=== PATIENT | male | born 1965 | race African-American/Black ===

== ENCOUNTER 2024-01-27 13:16 | Inpatient (IN) | payer OTHER ==
[2024-01-27 15:44] VITALS: BMI 21.9
[2024-01-27] MEDS ORDERED: guaiFENesin 600 MG TABLET.ER (FP) PO PRN (16:15)
[2024-01-27] MEDS ORDERED: hydrOXYzine PAMOATE 25 MG CAPSULE (FP) PO PRN (16:15)
[2024-01-27] MEDS ORDERED: BENZONATATE 200 MG CAPSULE PO PRN (16:15)
[2024-01-27] MEDS ORDERED: IBUPROFEN 600 MG TABLET (FP) PO PRN (16:15)
[2024-01-27] MEDS ORDERED: ACETAMINOPHEN 325 MG TABLET (FP) PO PRN (16:15)
[2024-01-27] MEDS ORDERED: POLYETHYLENE GLYCOL (HEALTHYLAX) 3350 17 GM PACKET PO PRN (16:15)
[2024-01-27] MEDS ORDERED: DOCUSATE SODIUM 100 MG CAPSULE (FP) PO PRN (16:15)
[2024-01-27] MEDS ORDERED: LOPERAMIDE HCL 2 MG CAPSULE PO PRN (16:15)
[2024-01-27] MEDS ORDERED: MAG HYDROX/AL HYDROX/SIMETH 30 ML UNIT-DOSE CUP PO PRN (16:15)
[2024-01-27] MEDS ORDERED: BENZOCAINE/MENTHOL (CHLORASEPTIC ) LOZENGE MM PRN (16:15)
[2024-01-27] MEDS ORDERED: MAGNESIUM HYDROX 2400MG/30ML ORAL SUSPENSION 30 ML CUP PO PRN (16:15)
[2024-01-27] MEDS ORDERED: IBUPROFEN 400 MG TABLET (FP) PO PRN (16:15)
[2024-01-27] MEDS ORDERED: P-EPHED 60MG/TRIPROLIDI 2.5MG TABLET PO PRN (16:15)
[2024-01-27] MEDS: MELATONIN 5 MG TABLETS PO SCH (22:02)
[2024-01-27] MEDS: THIAMINE 100 MG TABLET PO SCH (22:02)
[2024-01-28] MEDS: PRENATAL VITAMINS W/ FOLIC ACID TABLET (FP) PO SCH (10:08)
[2024-01-28 11:41] LABS: HEMATOCRIT 35.3 % (35.4-49); HEMOGLOBIN 12.1 GM/dL (11.7-16.9); MCH 30.5 pg (25.7-33.7); MCHC 34.4 g/dl (32.0-35.9); MEAN CELL VOLUME 88.6 fl (80-96); MEAN PLT VOLUME 10.8 fl (7.5-11.1); PLATELET COUNT 214 10^3/uL (134-434); RBC 3.98 M/mm3 (4.00-5.60); RDW 14.9 % (11.9-15.9)
[2024-01-28 11:59] LABS: POTASSIUM 3.8 mmol/L (3.5-5.1)
[2024-01-28 12:05] LABS: CALCIUM 8.3 mg/dL (8.5-10.1)
[2024-01-28 12:06] LABS: ALBUMIN 2.7 g/dl (3.4-5.0); BLOOD UREA NITROGEN 12.2 mg/dL (7-18)
[2024-01-28 12:09] LABS: CREATININE 0.7 mg/dL (0.55-1.3)
[2024-01-28 12:10] LABS: TOT PROT 7.1 g/dl (6.4-8.2)
[2024-01-28 12:17] LABS: BILIRUBIN,TOTAL 0.7 mg/dL (0.2-1)
[2024-01-28 12:18] LABS: SYPHILIS W/ RPR CONF NON-REACTIVE (NONREACTIVE)
[2024-01-28 17:26] LABS: PH,URINE 7.5 (5.0-8.0); URINE APPEARANCE CLEAR; URINE BILIRUBIN NEGATIVE (NEGATIVE); URINE COLOR YELLOW; URINE GLUCOSE (UA) NEGATIVE (NEGATIVE); URINE KETONE NEGATIVE (NEGATIVE); URINE LEUK ESTERASE NEGATIVE (NEGATIVE); URINE NITRITE NEGATIVE (NEGATIVE); URINE PROTEIN NEGATIVE (NEGATIVE); URINE UROBILINOGEN 0.2 mg/dL (0.2-1.0)
[2024-02-04] MEDS ORDERED: BENZOCAINE/MENTH/CETYLPYRD CL 1 EACH LOZENGE MM PRN (09:53)
[2024-02-08 07:04] VITALS: RESP 18
[2024-02-11] MEDS: DOXYCYCLINE HYCLATE 100 MG TABLET PO SCH (18:38)
[2024-02-13 06:51] VITALS: BP 124/84; PULSE 78; TEMP 97.5
== END 2024-02-13 09:35 | disposition home or self-care (01) | DRG 772 ==
LOC: YASAS 13:16 → Y5N 18:10
PROVIDERS: ADMIT Allergy & Immunology; ATTEND Psychiatry & Neurology Pain Medicine
PROC: HZ42ZZZ Group Counseling for Substance Abuse Treatment, Cognitive-Behavioral (ICD-10-PCS; principal; 2024-01-27)
DX: F14.20 Cocaine dependence, uncomplicated (principal); F10.20 Alcohol dependence, uncomplicated; F17.210 Nicotine dependence, cigarettes, uncomplicated; J06.9 Acute upper respiratory infection, unspecified
CPT/HCPCS: 0241U-QW; 36415; 80053; 80305; 81003; 85027; 86780; 86803; 87811; 93005; 93010

== ENCOUNTER 2024-03-17 20:18 | Inpatient (IN) | payer OTHER ==
[2024-03-17 21:04] VITALS: BMI 26.6
[2024-03-17] MEDS ORDERED: LOPERAMIDE HCL 2 MG CAPSULE PO PRN (21:48)
[2024-03-17] MEDS ORDERED: NALOXONE (NARCAN) HCL 4 MG/0.1 ML SPRAY NS PRN (21:48)
[2024-03-17] MEDS ORDERED: IBUPROFEN 400 MG TABLET (FP) PO PRN (21:48)
[2024-03-17] MEDS ORDERED: BENZONATATE 200 MG CAPSULE PO PRN (21:48)
[2024-03-17] MEDS ORDERED: hydrOXYzine PAMOATE 25 MG CAPSULE (FP) PO PRN (21:48)
[2024-03-17] MEDS ORDERED: guaiFENesin 600 MG TABLET.ER (FP) PO PRN (21:48)
[2024-03-17] MEDS ORDERED: POLYETHYLENE GLYCOL (HEALTHYLAX) 3350 17 GM PACKET PO PRN (21:48)
[2024-03-17] MEDS ORDERED: BENZOCAINE/MENTHOL (CHLORASEPTIC ) LOZENGE MM PRN (21:48)
[2024-03-17] MEDS ORDERED: NALOXONE HCL 0.4 MG/ML VIAL IM PRN (21:48)
[2024-03-17] MEDS ORDERED: IBUPROFEN 600 MG TABLET (FP) PO PRN (21:48)
[2024-03-17] MEDS ORDERED: MAG HYDROX/AL HYDROX/SIMETH 30 ML UNIT-DOSE CUP PO PRN (21:48)
[2024-03-17] MEDS ORDERED: MAGNESIUM HYDROX 2400MG/30ML ORAL SUSPENSION 30 ML CUP PO PRN (21:48)
[2024-03-17] MEDS ORDERED: ACETAMINOPHEN 325 MG TABLET (FP) PO PRN (21:48)
[2024-03-17] MEDS: THIAMINE 100 MG TABLET PO SCH (23:16)
[2024-03-17] MEDS: MELATONIN 5 MG TABLETS PO SCH (23:16)
[2024-03-18] MEDS: PRENATAL VITAMINS W/ FOLIC ACID TABLET (FP) PO SCH (10:12)
[2024-03-18 11:31] LABS: HEMATOCRIT 34.7 % (35.4-49); HEMOGLOBIN 11.7 GM/dL (11.7-16.9); MCH 30.1 pg (25.7-33.7); MCHC 33.7 g/dl (32.0-35.9); MEAN CELL VOLUME 89.3 fl (80-96); MEAN PLT VOLUME 11.9 fl (7.5-11.1); PLATELET COUNT 133 10^3/uL (134-434); RBC 3.89 M/mm3 (4.00-5.60); WHITE BLOOD COUNT 4.6 K/mm3 (4.0-10.0)
[2024-03-18 11:35] LABS: URINE APPEARANCE CLEAR; URINE BILIRUBIN NEGATIVE (NEGATIVE); URINE COLOR YELLOW; URINE GLUCOSE (UA) NEGATIVE (NEGATIVE); URINE KETONE NEGATIVE (NEGATIVE); URINE LEUK ESTERASE NEGATIVE (NEGATIVE); URINE NITRITE NEGATIVE (NEGATIVE); URINE PROTEIN NEGATIVE (NEGATIVE)
[2024-03-18 11:43] LABS: CHLORIDE 106 mmol/L (98-107); POTASSIUM 3.5 mmol/L (3.5-5.1); SODIUM 141 mmol/L (136-145)
[2024-03-18 11:53] LABS: CALCIUM 7.9 mg/dL (8.5-10.1)
[2024-03-18 11:54] LABS: ANION GAP 5 mmol/L (4-13); BLOOD UREA NITROGEN 15.6 mg/dL (7-18); CO2 29 mmol/L (21-32); GLUCOSE,RANDOM 132 mg/dL (74-106)
[2024-03-18 11:57] LABS: CREATININE 0.7 mg/dL (0.55-1.3); SGOT/AST 21 U/L (15-37); SGPT/ALT 23 U/L (13-61)
[2024-03-18 11:58] LABS: BILIRUBIN,TOTAL 0.7 mg/dL (0.2-1); TOT PROT 7.4 g/dl (6.4-8.2)
[2024-03-18 12:00] LABS: ALK PHOS 70 U/L (45-117)
[2024-03-20 11:13] LABS: POTASSIUM 3.4 mmol/L (3.5-5.1)
[2024-03-20 11:16] LABS: BASO % 0.8 % (0-2.0); BLOOD UREA NITROGEN 10.5 mg/dL (7-18); CALCIUM 8.6 mg/dL (8.5-10.1); EOS % 2.7 % (0-4.5); HEMATOCRIT 36.7 % (35.4-49); HEMOGLOBIN 12.4 GM/dL (11.7-16.9); MCH 29.7 pg (25.7-33.7); MCHC 33.7 g/dl (32.0-35.9); MONO % 10.9 % (3.8-10.2); NEUT % 45.6 % (42.8-82.8); PLATELET COUNT 130 10^3/uL (134-434); RBC 4.17 M/mm3 (4.00-5.60); WHITE BLOOD COUNT 4.3 K/mm3 (4.0-10.0)
[2024-03-20 11:17] LABS: ALBUMIN 3.1 g/dl (3.4-5.0); INR 1.1 (0.83-1.09); PROTHROMBIN TIME (PATIENT) 12.4 SEC (9.7-13.0)
[2024-03-20 11:20] LABS: CREATININE 0.7 mg/dL (0.55-1.3)
[2024-03-20 11:22] LABS: BILIRUBIN,TOTAL 0.3 mg/dL (0.2-1); TOT PROT 7.3 g/dl (6.4-8.2)
[2024-03-21] MEDS: LACTULOSE 20 GM/30 ML UDC (FOR ORAL USE ONLY) PO SCH (13:40)
[2024-03-22] MEDS: POTASSIUM CHLORIDE ORAL LIQUID 20 MEQ/15 ML PO SCH (13:22)
[2024-03-26 06:11] VITALS: BP 108/73; PULSE 70; RESP 18; TEMP 96.8
== END 2024-03-26 10:41 | disposition home or self-care (01) | DRG 772 ==
LOC: YASAS 20:18 → Y3W 21:52
PROVIDERS: ADMIT Allergy & Immunology; ATTEND Psychiatry & Neurology Pain Medicine
PROC: HZ42ZZZ Group Counseling for Substance Abuse Treatment, Cognitive-Behavioral (ICD-10-PCS; principal; 2024-03-17)
DX: F10.20 Alcohol dependence, uncomplicated (principal); F14.20 Cocaine dependence, uncomplicated; E72.20 Disorder of urea cycle metabolism, unspecified; E87.6 Hypokalemia; D68.8 Other specified coagulation defects; R94.31 Abnormal electrocardiogram [ECG] [EKG]; R26.89 Other abnormalities of gait and mobility; Z99.89 Dependence on other enabling machines and devices; Z87.891 Personal history of nicotine dependence
CPT/HCPCS: 36415; 80053; 80305; 80307; 81003; 82140; 85025; 85027; 85610; 86780; 87811; 93005; 93010

== ENCOUNTER 2024-03-18 00:01 | Emergency (ER) | payer OTHER ==
[2024-03-18 00:22] VITALS: BP 116/61; PULSE 72; RESP 17; TEMP 97.8; BMI 25.0
== END 2024-03-18 02:47 | disposition home or self-care (01) ==
LOC: JER 00:01
DX: R94.31 Abnormal electrocardiogram [ECG] [EKG] (principal)
CPT/HCPCS: 93005; 93010; 99283-25

== ENCOUNTER 2024-05-07 11:24 | Inpatient (IN) | payer OTHER ==
[2024-05-07 12:50] VITALS: BMI 24.3
[2024-05-07] MEDS ORDERED: POLYETHYLENE GLYCOL (HEALTHYLAX) 3350 17 GM PACKET PO PRN (13:13)
[2024-05-07] MEDS ORDERED: LOPERAMIDE HCL 2 MG CAPSULE PO PRN (13:13)
[2024-05-07] MEDS ORDERED: IBUPROFEN 400 MG TABLET (FP) PO PRN (13:13)
[2024-05-07] MEDS ORDERED: BENZONATATE 200 MG CAPSULE PO PRN (13:13)
[2024-05-07] MEDS ORDERED: BENZOCAINE/MENTHOL (CHLORASEPTIC ) LOZENGE MM PRN (13:13)
[2024-05-07] MEDS ORDERED: MAGNESIUM HYDROX 2400MG/30ML ORAL SUSPENSION 30 ML CUP PO PRN (13:13)
[2024-05-07] MEDS ORDERED: guaiFENesin 600 MG TABLET.ER (FP) PO PRN (13:13)
[2024-05-07] MEDS ORDERED: MAG HYDROX/AL HYDROX/SIMETH 30 ML UNIT-DOSE CUP PO PRN (13:13)
[2024-05-07] MEDS ORDERED: ACETAMINOPHEN 325 MG TABLET (FP) PO PRN (13:13)
[2024-05-07] MEDS ORDERED: IBUPROFEN 600 MG TABLET (FP) PO PRN (13:13)
[2024-05-07] MEDS: MELATONIN 5 MG TABLETS PO SCH (22:27)
[2024-05-07] MEDS: THIAMINE 100 MG TABLET PO SCH (22:28)
[2024-05-08] MEDS: PRENATAL VITAMINS W/ FOLIC ACID TABLET (FP) PO SCH (10:29)
[2024-05-08 11:09] LABS: HEMATOCRIT 37.4 % (35.4-49); HEMOGLOBIN 12.4 GM/dL (11.7-16.9); MCH 28.8 pg (25.7-33.7); MEAN CELL VOLUME 87.2 fl (80-96); MEAN PLT VOLUME 11.7 fl (7.5-11.1); PLATELET COUNT 132 10^3/uL (134-434); RBC 4.29 M/mm3 (4.00-5.60); RDW 15.5 % (11.9-15.9); WHITE BLOOD COUNT 4.7 K/mm3 (4.0-10.0)
[2024-05-08 11:13] LABS: POTASSIUM 4.1 mmol/L (3.5-5.1)
[2024-05-08 11:19] LABS: ALBUMIN 2.9 g/dl (3.4-5.0)
[2024-05-08 11:20] LABS: CALCIUM 8.6 mg/dL (8.5-10.1)
[2024-05-08 11:23] LABS: CREATININE 0.7 mg/dL (0.55-1.3)
[2024-05-08 11:24] LABS: BILIRUBIN,TOTAL 0.6 mg/dL (0.2-1); TOT PROT 7.3 g/dl (6.4-8.2)
[2024-05-13 07:02] VITALS: BP 126/3; PULSE 73; RESP 17; TEMP 97.1
[2024-05-13 14:27] LABS: PH,URINE 6.5 (5.0-8.0); URINE APPEARANCE CLEAR; URINE BILIRUBIN NEGATIVE (NEGATIVE); URINE COLOR YELLOW; URINE GLUCOSE (UA) NEGATIVE (NEGATIVE); URINE KETONE NEGATIVE (NEGATIVE); URINE LEUK ESTERASE NEGATIVE (NEGATIVE); URINE NITRITE NEGATIVE (NEGATIVE); URINE PROTEIN NEGATIVE (NEGATIVE); URINE UROBILINOGEN 0.2 mg/dL (0.2-1.0)
== END 2024-05-13 10:38 | disposition home or self-care (01) | DRG 772 ==
LOC: YASAS 11:24 → Y3NR 14:43 → Y3W 05-10 11:21
PROVIDERS: ADMIT Psychiatry & Neurology Pain Medicine; ATTEND Psychiatry & Neurology Pain Medicine
PROC: HZ42ZZZ Group Counseling for Substance Abuse Treatment, Cognitive-Behavioral (ICD-10-PCS; principal; 2024-05-07)
DX: F14.20 Cocaine dependence, uncomplicated (principal); F17.210 Nicotine dependence, cigarettes, uncomplicated; E72.20 Disorder of urea cycle metabolism, unspecified; R79.89 Other specified abnormal findings of blood chemistry; R26.89 Other abnormalities of gait and mobility; Z99.89 Dependence on other enabling machines and devices; Z87.891 Personal history of nicotine dependence
CPT/HCPCS: 36415; 80053; 80305; 81003; 82140; 85027; 86780; 87811

== ENCOUNTER 2024-06-18 10:01 | Inpatient (IN) | payer OTHER ==
[2024-06-18 10:29] VITALS: BMI 24.3
[2024-06-18] MEDS ORDERED: DOCUSATE SODIUM 100 MG CAPSULE (FP) PO PRN (10:55)
[2024-06-18] MEDS ORDERED: MAGNESIUM HYDROX 2400MG/30ML ORAL SUSPENSION 30 ML CUP PO PRN (10:55)
[2024-06-18] MEDS ORDERED: BENZONATATE 200 MG CAPSULE PO PRN (10:55)
[2024-06-18] MEDS ORDERED: MAG HYDROX/AL HYDROX/SIMETH 30 ML UNIT-DOSE CUP PO PRN (10:55)
[2024-06-18] MEDS ORDERED: NICOTINE POLACRILEX 2 MG GUM BUC PRN (10:55)
[2024-06-18] MEDS ORDERED: IBUPROFEN 400 MG TABLET (FP) PO PRN (10:55)
[2024-06-18] MEDS ORDERED: NICOTINE POLACRILEX 2 MG LOZENGE BC PRN (10:55)
[2024-06-18] MEDS ORDERED: NALOXONE (NARCAN) HCL 4 MG/0.1 ML SPRAY NS PRN (10:55)
[2024-06-18] MEDS ORDERED: POLYETHYLENE GLYCOL (HEALTHYLAX) 3350 17 GM PACKET PO PRN (10:55)
[2024-06-18] MEDS ORDERED: guaiFENesin 600 MG TABLET.ER (FP) PO PRN (10:55)
[2024-06-18] MEDS ORDERED: ACETAMINOPHEN 325 MG TABLET (FP) PO PRN (10:55)
[2024-06-18] MEDS ORDERED: BENZOCAINE/MENTHOL (CHLORASEPTIC ) LOZENGE MM PRN (10:55)
[2024-06-18] MEDS ORDERED: LOPERAMIDE HCL 2 MG CAPSULE PO PRN (10:55)
[2024-06-18] MEDS ORDERED: METOPROLOL TARTRATE 25 MG TABLET (FP) ONE (11:40)
[2024-06-18] MEDS: METOPROLOL TARTRATE 25 MG TABLET (FP) PO ONE (11:40)
[2024-06-18] MEDS: ASPIRIN COATED 81 MG TABLET.EC PO SCH (12:00)
[2024-06-18] MEDS: LIDOCAINE 4% PATCH TP SCH (12:00)
[2024-06-18] MEDS: THIAMINE 100 MG TABLET PO SCH (21:48)
[2024-06-18] MEDS: MELATONIN 5 MG TABLETS PO SCH (21:48)
[2024-06-18] MEDS: LIDOCAINE PATCH REMOVAL MC SCH (21:50)
[2024-06-19] MEDS: PRENATAL VITAMINS W/ FOLIC ACID TABLET (FP) PO SCH (10:35)
[2024-06-19 11:25] LABS: HEMATOCRIT 36.2 % (35.4-49); HEMOGLOBIN 12.1 GM/dL (11.7-16.9); MCH 28.9 pg (25.7-33.7); MCHC 33.4 g/dl (32.0-35.9); MEAN CELL VOLUME 86.4 fl (80-96); MEAN PLT VOLUME 11.2 fl (7.5-11.1); PLATELET COUNT 131 10^3/uL (134-434); RBC 4.18 M/mm3 (4.00-5.60); RDW 15.5 % (11.9-15.9); WHITE BLOOD COUNT 4.7 K/mm3 (4.0-10.0)
[2024-06-19 14:48] LABS: CHLORIDE 105 mmol/L (98-107); POTASSIUM 3.3 mmol/L (3.5-5.1); SODIUM 138 mmol/L (136-145)
[2024-06-19 14:53] LABS: ANION GAP 2 mmol/L (4-13); BLOOD UREA NITROGEN 13.2 mg/dL (7-18); CALCIUM 9.6 mg/dL (8.5-10.1); CO2 32 mmol/L (21-32); GLUCOSE,RANDOM 112 mg/dL (74-106)
[2024-06-19 14:56] LABS: CREATININE 0.8 mg/dL (0.55-1.3); SGOT/AST 26 U/L (15-37); SGPT/ALT 25 U/L (13-61)
[2024-06-19 14:57] LABS: TOT PROT 7.3 g/dl (6.4-8.2)
[2024-06-19 14:58] LABS: ALK PHOS 69 U/L (45-117)
[2024-06-19] MEDS: POTASSIUM CHLORIDE ORAL LIQUID 20 MEQ/15 ML PO ONE (17:53)
[2024-06-19 20:50] LABS: PH,URINE 6.5 (5.0-8.0); URINE APPEARANCE CLEAR; URINE BILIRUBIN NEGATIVE (NEGATIVE); URINE COLOR YELLOW; URINE GLUCOSE (UA) NEGATIVE (NEGATIVE); URINE KETONE NEGATIVE (NEGATIVE); URINE LEUK ESTERASE NEGATIVE (NEGATIVE); URINE NITRITE NEGATIVE (NEGATIVE); URINE PROTEIN NEGATIVE (NEGATIVE); URINE UROBILINOGEN 0.2 mg/dL (0.2-1.0)
[2024-06-19] MEDS: IBUPROFEN 600 MG TABLET (FP) PO PRN (22:03)
[2024-06-20 11:31] LABS: CALCIUM 8.7 mg/dL (8.5-10.1)
[2024-06-20 11:32] LABS: BLOOD UREA NITROGEN 11.8 mg/dL (7-18)
[2024-06-20 11:35] LABS: CREATININE 0.7 mg/dL (0.55-1.3)
[2024-06-21] MEDS: FLU VACCINE (FLULAVAL) PF 45 MCG/0.5 ML SYRINGE 2024-2025 IM ONE (12:30)
[2024-06-21] MEDS: BACITRACIN ZINC 15 GM TUBE TOPICAL OINTMENT TP SCH (17:21)
[2024-06-25] MEDS: METHYL SALICYLATE/MENTHOL 30 GM TUBE TP PRN (22:46)
[2024-06-29 08:56] VITALS: BP 137/79; PULSE 86; RESP 17; TEMP 97.4
[2024-06-29] MEDS: NALOXONE (NYS OPIOID OVERDOSE PROGRAM) 4 MG/0.1 ML SPRAY NS PRN (11:41)
== END 2024-06-29 11:47 | disposition home or self-care (01) | DRG 772 ==
LOC: YASAS 10:01 → Y3E 12:00
PROVIDERS: ADMIT Psychiatry & Neurology Pain Medicine; ATTEND Psychiatry & Neurology Pain Medicine
PROC: HZ42ZZZ Group Counseling for Substance Abuse Treatment, Cognitive-Behavioral (ICD-10-PCS; principal; 2024-06-18)
DX: F14.20 Cocaine dependence, uncomplicated (principal); F10.20 Alcohol dependence, uncomplicated; F17.210 Nicotine dependence, cigarettes, uncomplicated; M25.561 Pain in right knee; M25.551 Pain in right hip; R94.31 Abnormal electrocardiogram [ECG] [EKG]; R26.89 Other abnormalities of gait and mobility; Z99.89 Dependence on other enabling machines and devices
CPT/HCPCS: 36415; 80048; 80053; 80305; 80307; 81003; 85027; 87811

== ENCOUNTER 2024-08-16 14:25 | Inpatient (IN) | payer OTHER ==
[2024-08-16 17:21] VITALS: BMI 24.7
[2024-08-16] MEDS ORDERED: NICOTINE POLACRILEX 2 MG GUM BUC PRN (19:46)
[2024-08-16] MEDS ORDERED: BENZOCAINE/MENTHOL (CHLORASEPTIC ) LOZENGE MM PRN (19:46)
[2024-08-16] MEDS ORDERED: NALOXONE (NARCAN) HCL 4 MG/0.1 ML SPRAY NS PRN (19:46)
[2024-08-16] MEDS ORDERED: DICYCLOMINE HCL 10 MG CAPSULE PO PRN (19:46)
[2024-08-16] MEDS ORDERED: IBUPROFEN 400 MG TABLET (FP) PO PRN (19:46)
[2024-08-16] MEDS ORDERED: MAG HYDROX/AL HYDROX/SIMETH 30 ML UNIT-DOSE CUP PO PRN (19:46)
[2024-08-16] MEDS ORDERED: MAGNESIUM HYDROX 2400MG/30ML ORAL SUSPENSION 30 ML CUP PO PRN (19:46)
[2024-08-16] MEDS ORDERED: BENZONATATE 200 MG CAPSULE PO PRN (19:46)
[2024-08-16] MEDS ORDERED: guaiFENesin 600 MG TABLET.ER (FP) PO PRN (19:46)
[2024-08-16] MEDS ORDERED: LOPERAMIDE HCL 2 MG CAPSULE PO PRN (19:46)
[2024-08-16] MEDS ORDERED: IBUPROFEN 600 MG TABLET (FP) PO PRN (19:46)
[2024-08-16] MEDS ORDERED: BISMUTH SUBSALICYLATE 524 MG/30 ML PO PRN (19:46)
[2024-08-16] MEDS ORDERED: POLYETHYLENE GLYCOL (HEALTHYLAX) 3350 17 GM PACKET PO PRN (19:46)
[2024-08-16] MEDS ORDERED: ONDANSETRON *ODT* 4 MG TABLET SL PRN (19:46)
[2024-08-16] MEDS ORDERED: hydrOXYzine PAMOATE 25 MG CAPSULE (FP) PO PRN (19:46)
[2024-08-16] MEDS ORDERED: ACETAMINOPHEN 325 MG TABLET (FP) PO PRN (19:46)
[2024-08-16] MEDS: MELATONIN 5 MG TABLETS PO SCH (22:34)
[2024-08-16] MEDS: THIAMINE 100 MG TABLET PO SCH (22:34)
[2024-08-17] MEDS ORDERED: LORazepam 1 MG TABLET PO PRN (09:06)
[2024-08-17] MEDS: NICOTINE 21 MG/24 HOURS TOPICAL PATCH TD SCH (10:40)
[2024-08-17] MEDS: LORazepam 2 MG TABLET PO SCH (10:41)
[2024-08-17] MEDS: PRENATAL VITAMINS W/ FOLIC ACID TABLET (FP) PO SCH (10:41)
[2024-08-17 12:53] LABS: CHLORIDE 106 mmol/L (98-107); POTASSIUM 3.9 mmol/L (3.5-5.1); SODIUM 141 mmol/L (136-145)
[2024-08-17 12:56] LABS: ANION GAP 3 mmol/L (4-13); CALCIUM 8.8 mg/dL (8.5-10.1); CO2 31 mmol/L (21-32); GLUCOSE,RANDOM 113 mg/dL (74-106); HEMATOCRIT 39.3 % (35.4-49); HEMOGLOBIN 12.8 GM/dL (11.7-16.9); MCH 28.9 pg (25.7-33.7); MCHC 32.5 g/dl (32.0-35.9); MEAN CELL VOLUME 88.9 fl (80-96); MEAN PLT VOLUME 11.3 fl (7.5-11.1); PLATELET COUNT 154 10^3/uL (134-434); RBC 4.43 M/mm3 (4.00-5.60); RDW 16.1 % (11.9-15.9); WHITE BLOOD COUNT 5.3 K/mm3 (4.0-10.0)
[2024-08-17 12:59] LABS: CREATININE 0.7 mg/dL (0.55-1.3); SGOT/AST 19 U/L (15-37); SGPT/ALT 22 U/L (13-61)
[2024-08-17 13:01] LABS: BILIRUBIN,TOTAL 0.9 mg/dL (0.2-1); TOT PROT 7.2 g/dl (6.4-8.2)
[2024-08-17 13:02] LABS: ALK PHOS 68 U/L (45-117)
[2024-08-19] MEDS: LORazepam 1 MG TABLET PO SCH (05:56)
[2024-08-19] MEDS: METHOCARBAMOL 500 MG TABLET PO PRN (22:21)
[2024-08-20] MEDS ORDERED: LORazepam 0.5 MG TABLET PO PRN
[2024-08-20] MEDS: LORazepam 0.5 MG TABLET PO SCH (05:10)
[2024-08-21] MEDS: LORazepam 0.5 MG TABLET PO ONE (05:58)
[2024-08-21 07:11] VITALS: PULSE 71
[2024-08-21] MEDS: NALOXONE (NYS OPIOID OVERDOSE PROGRAM) 4 MG/0.1 ML SPRAY NS SCH (08:41)
[2024-08-21 09:33] VITALS: BP 120/78; RESP 18; TEMP 98
== END 2024-08-21 10:20 | disposition home or self-care (01) | DRG 774 ==
LOC: YASAS 14:25 → Y6N 20:37
PROVIDERS: ADMIT Allergy & Immunology; ATTEND Surgery
PROC: HZ2ZZZZ Detoxification Services for Substance Abuse Treatment (ICD-10-PCS; principal; 2024-08-16)
DX: F10.230 Alcohol dependence with withdrawal, uncomplicated (principal); F14.20 Cocaine dependence, uncomplicated; F17.210 Nicotine dependence, cigarettes, uncomplicated; M16.11 Unilateral primary osteoarthritis, right hip; M25.561 Pain in right knee; G89.29 Other chronic pain; Z99.89 Dependence on other enabling machines and devices
CPT/HCPCS: 36415; 80053; 80305; 80307; 85027; 86780

== ENCOUNTER 2024-09-23 13:16 | Inpatient (IN) | payer OTHER ==
[2024-09-23 14:20] VITALS: BMI 25.0
[2024-09-23] MEDS ORDERED: hydrOXYzine PAMOATE 25 MG CAPSULE (FP) PO PRN (14:20)
[2024-09-23] MEDS ORDERED: POLYETHYLENE GLYCOL (HEALTHYLAX) 3350 17 GM PACKET PO PRN (14:20)
[2024-09-23] MEDS ORDERED: MAGNESIUM HYDROX 2400MG/30ML ORAL SUSPENSION 30 ML CUP PO PRN (14:20)
[2024-09-23] MEDS ORDERED: BENZONATATE 200 MG CAPSULE PO PRN (14:20)
[2024-09-23] MEDS ORDERED: MAG HYDROX/AL HYDROX/SIMETH 30 ML UNIT-DOSE CUP PO PRN (14:20)
[2024-09-23] MEDS ORDERED: BENZOCAINE/MENTHOL (CHLORASEPTIC ) LOZENGE MM PRN (14:20)
[2024-09-23] MEDS ORDERED: DICYCLOMINE HCL 10 MG CAPSULE PO PRN (14:20)
[2024-09-23] MEDS ORDERED: NALOXONE (NARCAN) HCL 4 MG/0.1 ML SPRAY NS PRN (14:20)
[2024-09-23] MEDS ORDERED: BISMUTH SUBSALICYLATE 262 MG/15 ML BTL PO PRN (14:20)
[2024-09-23] MEDS ORDERED: ACETAMINOPHEN 325 MG TABLET (FP) PO PRN (14:20)
[2024-09-23] MEDS ORDERED: guaiFENesin 600 MG TABLET.ER (FP) PO PRN (14:20)
[2024-09-23] MEDS ORDERED: IBUPROFEN 400 MG TABLET (FP) PO PRN (14:20)
[2024-09-23] MEDS ORDERED: LORazepam 1 MG TABLET PO PRN (14:20)
[2024-09-23] MEDS ORDERED: METHOCARBAMOL 500 MG TABLET PO PRN (14:20)
[2024-09-23] MEDS ORDERED: ONDANSETRON *ODT* 4 MG TABLET SL PRN (14:20)
[2024-09-23] MEDS ORDERED: LOPERAMIDE HCL 2 MG CAPSULE PO PRN (14:20)
[2024-09-23] MEDS ORDERED: IBUPROFEN 600 MG TABLET (FP) PO PRN (14:20)
[2024-09-23] MEDS ORDERED: NICOTINE POLACRILEX 4 MG GUM BUC PRN (14:20)
[2024-09-23] MEDS ORDERED: PRENATAL VITAMINS W/ FOLIC ACID TABLET (FP) PO ONE (15:49)
[2024-09-23] MEDS: PRENATAL VITAMINS W/ FOLIC ACID TABLET (FP) PO SCH (15:51)
[2024-09-23] MEDS: LORazepam 2 MG TABLET PO SCH (17:49)
[2024-09-23] MEDS: THIAMINE 100 MG TABLET PO SCH (22:22)
[2024-09-23] MEDS: MELATONIN 5 MG TABLETS PO SCH (22:22)
[2024-09-24 14:36] LABS: HEMATOCRIT 37.8 % (35.4-49); MCH 28.2 pg (25.7-33.7); MCHC 31.8 g/dl (32.0-35.9); MEAN CELL VOLUME 88.8 fl (80-96); MEAN PLT VOLUME 11.4 fl (7.5-11.1); PLATELET COUNT 174 10^3/uL (134-434); RBC 4.26 M/mm3 (4.00-5.60); RDW 15.3 % (11.9-15.9); WHITE BLOOD COUNT 6.1 K/mm3 (4.0-10.0)
[2024-09-24 14:40] LABS: CHLORIDE 104 mmol/L (98-107); POTASSIUM 3.9 mmol/L (3.5-5.1); SODIUM 139 mmol/L (136-145)
[2024-09-24 14:46] LABS: ALBUMIN 2.9 g/dl (3.4-5.0); ANION GAP 3 mmol/L (4-13); BLOOD UREA NITROGEN 11.3 mg/dL (7-18); CALCIUM 8.5 mg/dL (8.5-10.1); CO2 31 mmol/L (21-32); GLUCOSE,RANDOM 98 mg/dL (74-106)
[2024-09-24 14:47] LABS: SGOT/AST 15 U/L (15-37); SGPT/ALT 19 U/L (13-61)
[2024-09-24 14:49] LABS: BILIRUBIN,TOTAL 0.5 mg/dL (0.2-1); CREATININE 0.7 mg/dL (0.55-1.3); TOT PROT 7.4 g/dl (6.4-8.2)
[2024-09-24 14:50] LABS: ALK PHOS 58 U/L (45-117)
[2024-09-25] MEDS: LORazepam 1 MG TABLET PO SCH (05:33)
[2024-09-26] MEDS ORDERED: LORazepam 0.5 MG TABLET PO PRN
[2024-09-26] MEDS: LORazepam 0.5 MG TABLET PO SCH (05:40)
[2024-09-26] MEDS: NALOXONE (NYS OPIOID OVERDOSE PROGRAM) 4 MG/0.1 ML SPRAY NS SCH (09:50)
[2024-09-27] MEDS: LORazepam 0.5 MG TABLET PO ONE (05:37)
[2024-09-27] MEDS: BICTEGRAV/EMTRICIT/TENOFOV (BIKTARVY) 50-200-25 MG TABLET PO SCH (12:35)
[2024-09-28 06:20] VITALS: RESP 16
[2024-09-28] MEDS: NALTREXONE HCL 50 MG TABLET PO SCH (12:23)
[2024-09-28 13:25] VITALS: BP 143/93; PULSE 77; TEMP 97.6
== END 2024-09-28 14:30 | disposition other institution (70) | DRG 774 ==
LOC: YASAS 13:16 → Y6N 16:08
PROVIDERS: ADMIT Allergy & Immunology; ATTEND Allergy & Immunology
PROC: HZ2ZZZZ Detoxification Services for Substance Abuse Treatment (ICD-10-PCS; principal; 2024-09-23)
DX: F10.230 Alcohol dependence with withdrawal, uncomplicated (principal); F14.20 Cocaine dependence, uncomplicated; F17.210 Nicotine dependence, cigarettes, uncomplicated; Z21 Asymptomatic human immunodeficiency virus [HIV] infection status; E72.20 Disorder of urea cycle metabolism, unspecified; M25.551 Pain in right hip; M25.561 Pain in right knee; Z79.899 Other long term (current) drug therapy; Z99.89 Dependence on other enabling machines and devices
CPT/HCPCS: 36415; 80053; 80305; 80307; 85027; 86780; 93005; 93010

== ENCOUNTER 2024-09-28 14:47 | Inpatient (IN) | payer OTHER ==
[~2024-09-28 14:47] MED LIST: ACETAMINOPHEN 325 MG TABLET (FP) PO PRN; IBUPROFEN 400 MG TABLET (FP) PO PRN; IBUPROFEN 600 MG TABLET (FP) PO PRN; LOPERAMIDE HCL 2 MG CAPSULE PO PRN; MAG HYDROX/AL HYDROX/SIMETH 30 ML UNIT-DOSE CUP PO PRN; MAGNESIUM HYDROX 2400MG/30ML ORAL SUSPENSION 30 ML CUP PO PRN; NICOTINE POLACRILEX 4 MG GUM BUC PRN; NICOTINE POLACRILEX 4 MG LOZENGE BC PRN; POLYETHYLENE GLYCOL (HEALTHYLAX) 3350 17 GM PACKET PO PRN; hydrOXYzine PAMOATE 25 MG CAPSULE (FP) PO PRN
[2024-09-28] MEDS: MELATONIN 5 MG TABLETS PO SCH (22:21)
[2024-09-28] MEDS: THIAMINE 100 MG TABLET PO SCH (22:21)
[2024-09-29] MEDS: BICTEGRAV/EMTRICIT/TENOFOV (BIKTARVY) 50-200-25 MG TABLET PO SCH (10:16)
[2024-09-29] MEDS: NALTREXONE HCL 50 MG TABLET PO SCH (10:16)
[2024-09-29] MEDS: PRENATAL VITAMINS W/ FOLIC ACID TABLET (FP) PO SCH (10:16)
[2024-09-30] MEDS: BENZONATATE 200 MG CAPSULE PO PRN (18:03)
[2024-09-30] MEDS: BENZOCAINE/MENTHOL (CHLORASEPTIC ) LOZENGE MM PRN (18:03)
[2024-09-30] MEDS: guaiFENesin 600 MG TABLET.ER (FP) PO PRN (21:47)
[2024-10-02] MEDS: BICTEGRAV/EMTRICIT/TENOFOV (BIKTARVY) 50-200-25 MG TABLET PO SCH (06:36)
[2024-10-02 09:01] VITALS: RESP 18
[2024-10-05 06:59] VITALS: BP 133/78; PULSE 78; TEMP 97.1
[2024-10-05] MEDS: NALOXONE (NYS OPIOID OVERDOSE PROGRAM) 4 MG/0.1 ML SPRAY NS PRN (11:00)
== END 2024-10-05 10:45 | disposition home or self-care (01) | DRG 772 ==
LOC: YASAS 14:47 → Y3NR 14:48 → Y5N 09-29 11:26 → Y3NR 09-29 23:07 → Y5N 09-30 12:47
PROVIDERS: ADMIT Psychiatry & Neurology Pain Medicine; ATTEND Psychiatry & Neurology Pain Medicine
PROC: HZ42ZZZ Group Counseling for Substance Abuse Treatment, Cognitive-Behavioral (ICD-10-PCS; principal; 2024-09-28)
DX: F14.20 Cocaine dependence, uncomplicated (principal); F10.20 Alcohol dependence, uncomplicated; F17.210 Nicotine dependence, cigarettes, uncomplicated; Z21 Asymptomatic human immunodeficiency virus [HIV] infection status; M25.551 Pain in right hip; M25.561 Pain in right knee; G89.29 Other chronic pain; Z20.822 Contact with and (suspected) exposure to COVID-19; R26.89 Other abnormalities of gait and mobility; Z99.89 Dependence on other enabling machines and devices; Z79.899 Other long term (current) drug therapy

== ENCOUNTER 2024-12-16 11:44 | Inpatient (IN) | payer OTHER ==
[2024-12-16] MEDS ORDERED: POLYETHYLENE GLYCOL (HEALTHYLAX) 3350 17 GM PACKET PO PRN (12:32)
[2024-12-16] MEDS ORDERED: METHOCARBAMOL 500 MG TABLET PO PRN (12:32)
[2024-12-16] MEDS ORDERED: BISMUTH SUBSALICYLATE 524 MG/30 ML PO PRN (12:32)
[2024-12-16] MEDS ORDERED: IBUPROFEN 400 MG TABLET (FP) PO PRN (12:32)
[2024-12-16] MEDS ORDERED: MAGNESIUM HYDROX 2400MG/30ML ORAL SUSPENSION 30 ML CUP PO PRN (12:32)
[2024-12-16] MEDS ORDERED: ONDANSETRON *ODT* 4 MG TABLET SL PRN (12:32)
[2024-12-16] MEDS ORDERED: ACETAMINOPHEN 325 MG TABLET (FP) PO PRN (12:32)
[2024-12-16] MEDS ORDERED: hydrOXYzine PAMOATE 25 MG CAPSULE (FP) PO PRN (12:32)
[2024-12-16] MEDS ORDERED: guaiFENesin 600 MG TABLET.ER (FP) PO PRN (12:32)
[2024-12-16] MEDS ORDERED: IBUPROFEN 600 MG TABLET (FP) PO PRN (12:32)
[2024-12-16] MEDS ORDERED: DICYCLOMINE HCL 10 MG CAPSULE PO PRN (12:32)
[2024-12-16] MEDS ORDERED: MAG HYDROX/AL HYDROX/SIMETH 30 ML UNIT-DOSE CUP PO PRN (12:32)
[2024-12-16] MEDS ORDERED: LOPERAMIDE HCL 2 MG CAPSULE PO PRN (12:32)
[2024-12-16] MEDS ORDERED: BENZONATATE 200 MG CAPSULE PO PRN (12:32)
[2024-12-16] MEDS ORDERED: BENZOCAINE/MENTHOL (CHLORASEPTIC ) LOZENGE MM PRN (12:32)
[2024-12-16] MEDS ORDERED: NALOXONE (NARCAN) HCL 4 MG/0.1 ML SPRAY NS PRN (12:32)
[2024-12-16 12:38] VITALS: BMI 25.9
[2024-12-16] MEDS: NICOTINE 14 MG/24 HOURS TOPICAL PATCH TD SCH (15:21)
[2024-12-16] MEDS: PRENATAL VITAMINS W/ FOLIC ACID TABLET (FP) PO SCH (15:22)
[2024-12-16] MEDS: MELATONIN 5 MG TABLETS PO SCH (22:31)
[2024-12-16] MEDS: THIAMINE 100 MG TABLET PO SCH (22:32)
[2024-12-17] MEDS: BICTEGRAV/EMTRICIT/TENOFOV (BIKTARVY) 50-200-25 MG TABLET PO SCH (07:20)
[2024-12-17 11:53] LABS: HEMATOCRIT 34.6 % (40.1-51.0); HEMOGLOBIN 11.8 g/dL (13.7-17.5); MCHC 34.1 g/dl (32.3-36.5); MEAN CELL VOLUME 85.9 fl (79.0-92.2); PLATELET COUNT 142 x10^3/uL (163-337); RDW 13.8 % (12.2-16.1)
[2024-12-17 11:54] LABS: POTASSIUM 3.3 mmol/L (3.5-5.1)
[2024-12-17 12:00] LABS: CALCIUM 8.5 mg/dL (8.5-10.1)
[2024-12-17 12:01] LABS: BLOOD UREA NITROGEN 10.3 mg/dL (7-18)
[2024-12-17 12:04] LABS: CREATININE 0.7 mg/dL (0.55-1.3)
[2024-12-17 12:05] LABS: BILIRUBIN,TOTAL 0.5 mg/dL (0.2-1)
[2024-12-18] MEDS: POTASSIUM CHLORIDE ORAL LIQUID 20 MEQ/15 ML PO ONE ×2 (10:51→14:45)
[2024-12-19] MEDS: NALTREXONE HCL 50 MG TABLET PO ONE (13:10)
[2024-12-20 09:27] VITALS: BP 137/80; PULSE 63; RESP 16; TEMP 97.7
[2024-12-20] MEDS: NALTREXONE HCL 50 MG TABLET PO SCH (09:43)
== END 2024-12-20 12:23 | disposition other institution (70) | DRG 773 ==
LOC: YASAS 11:44 → Y6N 12:59
PROVIDERS: ADMIT Allergy & Immunology; ATTEND Allergy & Immunology
PROC: HZ2ZZZZ Detoxification Services for Substance Abuse Treatment (ICD-10-PCS; principal; 2024-12-16)
DX: F11.20 Opioid dependence, uncomplicated (principal); F14.20 Cocaine dependence, uncomplicated; F16.20 Hallucinogen dependence, uncomplicated; F17.210 Nicotine dependence, cigarettes, uncomplicated; Z21 Asymptomatic human immunodeficiency virus [HIV] infection status; E87.6 Hypokalemia; Z79.899 Other long term (current) drug therapy; Z99.89 Dependence on other enabling machines and devices
CPT/HCPCS: 36415; 80053; 80305; 80307; 84132; 85027; 86780; 87811; 93005; 93010

== ENCOUNTER 2024-12-20 12:27 | Inpatient (IN) | payer OTHER ==
[~2024-12-20 12:27] MED LIST changes: -ACETAMINOPHEN 325 MG TABLET (FP) PO PRN; +BENZOCAINE/MENTHOL (CHLORASEPTIC ) LOZENGE MM PRN; +BENZONATATE 200 MG CAPSULE PO PRN; +NALOXONE (NARCAN) HCL 4 MG/0.1 ML SPRAY NS PRN; +NICOTINE POLACRILEX 2 MG GUM BUC PRN; +NICOTINE POLACRILEX 2 MG LOZENGE BC PRN; -NICOTINE POLACRILEX 4 MG GUM BUC PRN; -NICOTINE POLACRILEX 4 MG LOZENGE BC PRN; +guaiFENesin 600 MG TABLET.ER (FP) PO PRN
[2024-12-20] MEDS: MELATONIN 5 MG TABLETS PO SCH (21:21)
[2024-12-20] MEDS: THIAMINE 100 MG TABLET PO SCH (21:21)
[2024-12-21] MEDS: BICTEGRAV/EMTRICIT/TENOFOV (BIKTARVY) 50-200-25 MG TABLET PO SCH (07:03)
[2024-12-21] MEDS: NALTREXONE HCL 50 MG TABLET PO SCH (10:13)
[2024-12-21] MEDS: NICOTINE 14 MG/24 HOURS TOPICAL PATCH TD SCH (10:13)
[2024-12-21] MEDS: PRENATAL VITAMINS W/ FOLIC ACID TABLET (FP) PO SCH (10:13)
[2024-12-30] MEDS: ACETAMINOPHEN 325 MG TABLET (FP) PO PRN (07:28)
[2024-12-30 12:34] VITALS: BP 122/82; PULSE 89; RESP 19; TEMP 98.7
== END 2024-12-30 11:24 | disposition home or self-care (01) | DRG 772 ==
LOC: YASAS 12:27 → Y3W 12:28
PROVIDERS: ADMIT Psychiatry & Neurology Pain Medicine; ATTEND Psychiatry & Neurology Pain Medicine
PROC: HZ42ZZZ Group Counseling for Substance Abuse Treatment, Cognitive-Behavioral (ICD-10-PCS; principal; 2024-12-20)
DX: F10.20 Alcohol dependence, uncomplicated (principal); F14.20 Cocaine dependence, uncomplicated; F16.20 Hallucinogen dependence, uncomplicated; Z21 Asymptomatic human immunodeficiency virus [HIV] infection status; M25.551 Pain in right hip; M25.561 Pain in right knee; G89.29 Other chronic pain; Z20.822 Contact with and (suspected) exposure to COVID-19; Z79.899 Other long term (current) drug therapy; Z87.891 Personal history of nicotine dependence
CPT/HCPCS: 0241U-QW

== ENCOUNTER 2025-01-07 08:47 | Inpatient (IN) | payer OTHER ==
[2025-01-07 09:07] VITALS: BMI 27.2
[2025-01-07] MEDS ORDERED: LOPERAMIDE HCL 2 MG CAPSULE PO PRN (11:49)
[2025-01-07] MEDS ORDERED: POLYETHYLENE GLYCOL (HEALTHYLAX) 3350 17 GM PACKET PO PRN (11:49)
[2025-01-07] MEDS ORDERED: IBUPROFEN 400 MG TABLET (FP) PO PRN (11:49)
[2025-01-07] MEDS ORDERED: IBUPROFEN 600 MG TABLET (FP) PO PRN (11:49)
[2025-01-07] MEDS ORDERED: BENZOCAINE/MENTHOL (CHLORASEPTIC ) LOZENGE MM PRN (11:49)
[2025-01-07] MEDS ORDERED: MAG HYDROX/AL HYDROX/SIMETH 30 ML UNIT-DOSE CUP PO PRN (11:49)
[2025-01-07] MEDS ORDERED: ACETAMINOPHEN 325 MG TABLET (FP) PO PRN (11:49)
[2025-01-07] MEDS ORDERED: BENZONATATE 200 MG CAPSULE PO PRN (11:49)
[2025-01-07] MEDS ORDERED: MAGNESIUM HYDROX 2400MG/30ML ORAL SUSPENSION 30 ML CUP PO PRN (11:49)
[2025-01-07] MEDS ORDERED: guaiFENesin 600 MG TABLET.ER (FP) PO PRN (11:49)
[2025-01-07] MEDS ORDERED: NALOXONE (NARCAN) HCL 4 MG/0.1 ML SPRAY NS PRN (11:49)
[2025-01-07] MEDS: MELATONIN 5 MG TABLETS PO SCH (21:15)
[2025-01-07] MEDS: THIAMINE 100 MG TABLET PO SCH (21:15)
[2025-01-08] MEDS ORDERED: BICTEGRAV/EMTRICIT/TENOFOV (BIKTARVY) 50-200-25 MG TABLET PO SCH (10:00)
[2025-01-08] MEDS: NALTREXONE HCL 50 MG TABLET PO SCH (10:10)
[2025-01-08] MEDS: PRENATAL VITAMINS W/ FOLIC ACID TABLET (FP) PO SCH (10:10)
[2025-01-08 10:26] LABS: PH,URINE 6.5 (5.0-8.0); URINE APPEARANCE CLEAR; URINE BILIRUBIN NEGATIVE (NEGATIVE); URINE COLOR YELLOW; URINE GLUCOSE (UA) NEGATIVE (NEGATIVE); URINE KETONE NEGATIVE (NEGATIVE); URINE LEUK ESTERASE NEGATIVE (NEGATIVE); URINE NITRITE NEGATIVE (NEGATIVE); URINE PROTEIN NEGATIVE (NEGATIVE); URINE UROBILINOGEN 0.2 mg/dL (0.2-1.0)
[2025-01-10 06:36] VITALS: BP 139/85; PULSE 71; RESP 16; TEMP 97
== END 2025-01-10 13:38 | disposition left against medical advice (07) | DRG 770 ==
LOC: YASAS 08:47 → Y3E 12:17
PROVIDERS: ADMIT Allergy & Immunology; ATTEND Allergy & Immunology
PROC: HZ42ZZZ Group Counseling for Substance Abuse Treatment, Cognitive-Behavioral (ICD-10-PCS; principal; 2025-01-07)
DX: F14.20 Cocaine dependence, uncomplicated (principal); F10.20 Alcohol dependence, uncomplicated; F17.210 Nicotine dependence, cigarettes, uncomplicated; M16.11 Unilateral primary osteoarthritis, right hip; Z59.02 Unsheltered homelessness
CPT/HCPCS: 0241U-QW; 80305; 80307; 81003; 87811